=== PATIENT | female | born 1935 | race Caucasian/White ===

== ENCOUNTER 2016-11-07 07:53 | Day surgery (SDC) | payer OTHER ==
--- NOTE | ~2016-11-07 | EGD ---
EGD REPORT [facility] [address] [place] [id number] NAME: NYA HUNT : 37 STATUS : REG [facility]#: [id number] AGE: 81 ADM/REG DATE : 11/07/16 MR#: [id number] REPORT SERV DATE: 11/07/16 DICTATED BY: CRISTAL RUSH DATE: 11/07/16 REPORT STATUS : Draft [facility]ANS[facility]ED BY: [facility] DATE: 11/07/16 [facility] Center Patient Name: Nya Hunt Date of : 1935 Attending MD: SLOAN RUSH MD Procedure Date No Time: 11/07/2016 Procedure: Colonoscopy Indications: High risk colon cancer surveillance: Personal history of colon cancer Referring MD: MILES AMOS Medicines: See the Anesthesia note for documentation of the administered medications Complications: No immediate complications. Estimated blood loss: None. Procedure: Pre-Anesthesia Assessment: - ASA Grade Assessment: III - A patient with severe systemic disease. - Prior to the procedure, a History and Physical was performed, and patient medications and allergies were reviewed. The patient's tolerance of previous anesthesia was also reviewed. The risks and benefits of the procedure and the sedation options and risks were discussed with the patient. All questions were answered, and informed consent was obtained. Prior Anticoagulants: The patient has taken no previous anticoagulant or antiplatelet agents. After reviewing the risks and benefits, the patient was deemed in satisfactory condition to undergo the procedure. After I obtained informed consent, the scope was passed under direct vision. Throughout the procedure, the patient's blood pressure, pulse, and oxygen saturations were monitored continuously. The PCF [id number] was introduced through the anus and advanced to the ileocolonic anastomosis. The rectum and ileocolonic anastamosis were photographed. The entire colon was examined. The colonoscopy was performed without difficulty. The patient tolerated the procedure well. The quality of the bowel preparation was adequate. Findings: There was evidence of a prior end-to-end ileo-colonic anastomosis in the mid ascending colon. This was patent. This was characterized by healthy appearing mucosa. This was traversed. A sessile polyp was found in the distal descending colon. The polyp was 4 mm in size. The polyp was removed with a cold snare. Resection and retrieval were complete. EGD REPORT [place] [place] [id number] [place]. [address] NAME: NYA HUNT : 37 STATUS : REG [facility]#: [id number] AGE: 81 ADM/REG DATE : 11/07/16 MR#: [id number] REPORT SERV DATE: 11/07/16 DICTATED BY: CRISTAL RUSH DATE: 11/07/16 REPORT STATUS : Draft [facility]ANS[facility]IBED BY: [facility] DATE: 11/07/16 Multiple small and large-mouthed diverticula were found in the entire colon. Non-bleeding internal hemorrhoids were found during retroflexion and were Grade I (internal hemorrhoids that do not prolapse). No other significant abnormalities were identified in a careful examination of the remainder of the colon. Impression: - Patent end-to-end ileo-colonic anastomosis. - One 4 mm polyp in the distal descending colon. Resected and retrieved. - Diverticulosis in the entire examined colon. - Non-bleeding internal hemorrhoids. Recommendation: - Patient has a contact number available for emergencies. The signs and symptoms of potential delayed complications were discussed with the patient. Return to normal activities tomorrow. Written discharge instructions were provided to the patient. - High fiber diet indefinitely. - Discharge patient to home. - Continue present medications. - Await pathology results. - Repeat colonoscopy is not recommended for surveillance. Procedure Code(s): --- Professional --- 65473, Colonoscopy, flexible, proximal to splenic flexure; with removal of tumor(s), polyp(s), or other lesion(s) by snare technique Diagnosis Code(s): --- Professional --- Z98.0, Intestinal bypass and anastomosis status D12.4, Benign neoplasm of descending colon K64.0, First degree hemorrhoids K57.30, Diverticulosis of large intestine without perforation or abscess without bleeding Z85.038, Personal history of other malignant neoplasm of large intestine CPT copyright 2013 [employer]. All rights reserved. The codes documented in this report are preliminary and upon ballistics professor review may be revised to meet current compliance requirements. SLOAN RUSH MD 11/07/2016 9:15 AM EGD REPORT [facility] [address] [place] [address] NAME: NYA HUNT : [birth year] STATUS : [place] [facility] [place]#: [id number] AGE: 81 ADM/REG DATE : 11/07/16 MR#: [id number] REPORT SERV DATE: 11/07/16 DICTATED BY: CRISTAL RUSH DATE: 11/07/16 REPORT STATUS : Draft TRANSCRIBED BY: [employer] DATE: 11/07/16 This report has been signed electronically. Number of Addenda: 0 Note Initiated On: 11/07/2016 8:44 AM Scope Withdrawal Time 0 hours 8 minutes 27 seconds [address] [address]
[~2016-11-07 07:53] MED LIST: ASAB PO; BREO ELLIPTA 21 EACH INH; LIQUID IRON; MULT VITAMINS; PRIN20 PO
== END 2016-11-07 23:59 | disposition home health service (06) ==
LOC: DMU 07:53
PROVIDERS: Internal Medicine Gastroenterology
PROC: 0DBM8ZX Excision of Descending Colon, Via Natural or Artificial Opening Endoscopic, Diagnostic (ICD-10-PCS; principal; 2016-11-07 09:00)
DX: Z12.11 Encounter for screening for malignant neoplasm of colon (principal); D12.4 Benign neoplasm of descending colon; Z98.0 Intestinal bypass and anastomosis status; I10 Essential (primary) hypertension; K64.0 First degree hemorrhoids; D64.9 Anemia, unspecified; K57.30 Diverticulosis of large intestine without perforation or abscess without bleeding; Z85.038 Personal history of other malignant neoplasm of large intestine; Z96.641 Presence of right artificial hip joint; Z96.651 Presence of right artificial knee joint; Z79.82 Long term (current) use of aspirin; Z79.899 Other long term (current) drug therapy
CPT/HCPCS: 88305